=== PATIENT | male | born 1975 | race Two or more races ===

== ENCOUNTER 2024-11-10 22:57 | Emergency (ER) | payer MEDICAID, SELFPAY ==
--- NOTE | 2024-11-10 22:58 | EKG_ITS ---
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
[2024-11-10 23:08] VITALS: BP 134/89; PULSE 88; RESP 18; TEMP 37.2; O2SAT 99; BMI 33.9
--- NOTE | 2024-11-10 23:16 | PD.EDADULT ---
ED General RME/HPI General Chief complaint: Chest Pain Stated complaint: CHEST PAIN Time Seen by Provider: 11/10/24 22:57 Arrival date/time: 11/10/24 22:57 RME / HPI RME / HPI narrative: Patient is 49 years old male is no significant past medical history presented to the ED complaining of left-sided chest pain. He reports pain started approximately 1 week ago and was worsening, today pain was unbearable and he came to the emergency room. He reports night sweats and chills periodically. He reports deep breathing causing worsening of pain. Pain does not respond to physical activity or rest. He denies fever, shortness of breath, abdominal pain, nausea, vomiting, diarrhea. He denies smoking tobacco, using illicit drugs or drink alcohol. Related Data Allergies Allergy/AdvReac Type Severity Reaction Status Date / Time No Known Allergies Allergy Verified 11/10/24 22:57 Review of Systems Review of Systems Systems Reviewed: All systems reviewed, normal except as documented ED Exam Narrative Physical exam: Gen: Well-developed and well-nourished male. HEENT: NCAT, PERRLA, EOMI, MMM, anicteric conjunctivae. CVS: normal S1 and S2. RRR. No M/R/G. Resp: CTA B/L. No rhonchi, rales, crackles or wheezing. Abd: soft, obese, tender in LUQ, non-distended. BS+ in all 4 quadrants. MSK: Good ROM in BUE & BLE. No edema or rash. Neuro: CN II-XII grossly intact. Strength 5/5 in BUE & BLE. Alert and oriented x3. Psych: appropriate mood and affect. Course Quality Measures none Orders Category Date Time Status Bedside COVID-19 Antigen Test NOW Care 11/10/24 23:25 Active Bedside Influenza A&B Antigen Test NOW Care 11/10/24 23:[address] Screening X1 Care 11/10/24 23:51 Active EKG (ED ONLY) *Do not use* NOW Care 11/10/24 22:58 Completed Saline [Insert IV] NOW Care 11/10/24 23:38 Active Straight [In and Out Catheter] X1 Care 11/10/24 23:[address] angio chest abdomen pelvis Stat Exams 11/10/24 23:38 Taken CXRP [XR chest 1V portable] Stat Exams 11/10/24 23:23 Completed EKG (ED Only) Stat Exams 11/10/24 22:58 Draft XR shoulder LT min 2V Stat Exams 11/10/24 23:38 Taken Amylase Stat Lab 11/10/24 23:56 Completed BNP [B-Type Natriuretic Peptide] Stat Lab 11/10/24 23:56 Completed CBC Stat Lab 11/10/24 23:56 Completed CMP [Comprehensive Metabolic Panel] Stat Lab 11/10/24 23:56 Completed D-Dimer Stat Lab 11/10/24 23:56 Completed Lipase Stat Lab 11/10/24 23:56 Completed Magnesium Stat Lab 11/10/24 23:56 Completed Triglycerides Stat Lab 11/10/24 23:56 Completed Troponin I Stat Lab 11/10/24 23:56 Completed Urinalysis Stat Lab 11/11/24 01:28 Completed HYDROmorphone INJ [Dilaudid Inj] Med 11/10/24 23:39 Discontinued 1 mg IVP X1 ONE Ketorolac Inj [Toradol Inj] Med 11/10/24 23:39 Discontinued 30 mg IVP X1 ONE Ondansetron Inj [Zofran Inj] Med 11/10/24 23:39 Discontinued 4 mg IV X1 ONE Sodium Chloride 0.9% 1000 ml [Ns] 1,000 ml Med 11/10/24 23:39 Discontinued IV 999 mls/hr Vital Signs Vital signs: Vital Signs Temperature 98.9 F 11/10/24 23:08 Pulse Rate 88 11/10/24 23:08 Respiratory Rate 18 11/10/24 23:08 Blood Pressure 134/89 H 11/10/24 23:08 Pulse Oximetry (%) 99 11/10/24 23:08 Oxygen Delivery Method Room Air 11/10/24 23:08 Procedures -ED EKG Interpretation #1: Date of EK11/10/24 Time of EK:04 Rate: 88 Interpretation: Reviewed by me EKG Impression: Normal sinus rhythm MDM Patient data [place] [facility] [place] Clinical information provided by:: patient and family Social determinants that could affect healthcare access:: none Patient has the following chronic illnesses:: none How is presenting disease/condition affected by chronic disease/condition?: no chronic disease Evaluation data The following diagnostics were reviewed and interpreted by me:: lab results, radiology exam(s) and EKG tracing(s) Lab and/or radiology exams considered but not ordered:: CTAP Interpretation Summary: WNL Medications Medications considered but not ordered:: Aspirin, statin Medication administrations:: Medication Administration History Discontinued Medications Hydromorphone HCl (Hydromorphone Inj 2 Mg/Ml Vial) 1 mg IVP X1 ONE Stop: 11/10/24 23:40 Last Admin: 11/11/24 00:02 Dose: 1 mg Documented By: RACQUEL Sodium Chloride (Ns) 1,000 mls @ 999 mls/hr IV .Q1H1M ONE Stop: 11/11/24 00:39 Last Infusion: 11/11/24 01:30 Dose: Infused Documented By: Admin: 11/10/24 23:54 Dose: 999 mls/hr Documented By: RACQUEL Ketorolac Tromethamine (Ketorolac Inj 30 Mg/Ml Vial) 30 mg IVP X1 ONE Stop: 11/10/24 23:40 Last Admin: 11/11/24 00:02 Dose: 30 mg Documented By: RACQUEL Ondansetron HCl (Ondansetron Inj 2 Mg/Ml Inj 2 Ml) 4 mg IV X1 ONE; Protocol Stop: 11/10/24 23:40 Last Admin: 11/11/24 00:02 Dose: 4 mg Documented By: RACQUEL Hydromorphone 1 mg, ketorolac 30 mg, ondansetron 4 mg, NS 1L. Consultations Consultation(s) initiated? (list below): No Diagnosis Differential Diagnosis ED Complaint MDM: ACS, costochondritis, PE, pneumothorax, pericarditis Most likely diagnosis given after review of the tests above:: Costochondritis Admission Indicated Admission indicated?: not indicated Explain why admission is indicated or not indicated:: Costochondritis, no need for admission, follow up outpatient. Admission Request Was there a request for admission?: No Disposition Plan Disposition Plan: Discharge Discharge Attestation Discharge Attestation: The patient and all family members were given an opportunity to ask questions and understood the discharge instructions. Discharge instructions specifically effects, indications for sooner follow up or return to the emergency department, and the expected course of current diagnosis. Patient condition: Stable Medical Decision Making Differential Diagnosis Differential Diagnosis: ACS, costochondritis, PE, pneumothorax, pericarditis Lab Data 11/10/24 23:56 11/10/24 23:56 Labs: Lab Results 11/10/24 11/11/24 Range/Units 23:56 01:28 WBC 10.2 (3.8-10.6) Thou/mm3 RBC 5.14 (4.50-5.90) Miln/mm3 Hgb 13.7 (13.5-16.0) g/dL Hct 40.0 L (41.0-53.0) % MCV 78 L (80-100) fL MCH 26.7 (25.0-35.0) pg MCHC 34.3 (31.0-37.0) g/dl RDW Std Deviation 38.8 (35.1-43.9) fL Plt Count 265 (140-440) Thou/mm3 Neut % (Auto) 56 (37-80) % Lymph % (Auto) 32 (10-50) % [place] % (Auto) 8 (0-12) % Eos % (Auto) 3 (0-10) % Baso % (Auto) 1 (0-2.5) % Neut # (Auto) 5.7 (1.8-7.7) Thou/mm3 Lymph # (Auto) 3.3 (1.0-4.8) Thou/mm3 [place] # (Auto) 0.8 (0.0-0.8) Thou/mm3 Eos # (Auto) 0.3 (0.0-0.5) Thou/mm3 Baso # (Auto) 0.1 (0.0-0.2) Thou/mm3 Immature Gran # (Auto) 0.05 H (0.00-0.00) Thou/mm3 Absolute Nucleated RBC 0.00 (0.00-0.00) Thou/mm3 Immature Gran % 1 H (0-0) % Nucleated RBC % 0 (0) /100 WBC D-Dimer 282 (<600) ng/mL Sodium 140 (136-145) mMol/L Potassium 3.5 (3.4-5.1) mMol/L Chloride 105 (98-107) mMol/L Carbon Dioxide 26.4 (20.0-31.0) mMol/L Anion Gap 9 (7-16) BUN 17 (9-23) mg/dL Creatinine 0.7 (0.6-1.3) mg/dL Estim Creat Clear Calc 147.2 (>60) mL/min eGFR > 60 (60 - ) See Note BUN/Creatinine Ratio 24 H (12-20) Ratio Glucose 120 H (74-106) mg/dL Calculated Osmolality 281 (275-295) Calcium 9.5 (8.3-10.6) mg/dL Corrected Calcium 9.5 (8.5-10.1) mg/dL Magnesium 2.2 (1.6-2.6) mg/dL Total Bilirubin 0.6 (0.3-1.2) mg/dL AST 23 (0-34) U/L ALT 32 (10-49) U/L Alkaline Phosphatase 72 (46-116) U/L Troponin I < 0.002 (0.0-0.045) ng/mL B-Natriuretic Peptide < 20 (0-100) pg/mL Total Protein 7.3 (5.7-8.2) gm/dL Albumin 4.7 (3.5-5.0) gm/dL Globulin 2.6 (2.3-3.5) gm/dL Albumin/Globulin Ratio 1.8 (1.2-2.2) Triglycerides 168 H (30-150) mg/dL Amylase 71 (30-118) U/L Lipase 40 (12-53) U/L Ur Collection Type Clean Catch Urine Color Lt-Yellow (Lt Yel-Yel) Urine Clarity Clear (Clear/Hazy) Urine pH 7.0 (5.0-7.0) Ur Specific [place] 1.031 (1.001-1.035) Urine Protein Trace (Neg - Trace) Urine Glucose (UA) Negative (Negative) Urine Ketones Negative (Negative) Urine Blood Negative (Negative) Urine Nitrite Negative (Negative) Urine Bilirubin Negative (Negative) Urine Urobilinogen (Auto) Negative (0.0-1.0) mg/dL Ur Leukocyte Esterase Negative (Negative) Urine RBC 3 (0-3) /hpf Urine WBC < 1 (0-5) /hpf Ur Squamous Epith Cells < 1 (0-5) /hpf Urine Bacteria None (None) Discharge Plan Plan Patient Disposition: HOME (Self Care) Patient condition on transfer: Stable Prescriptions/Referrals Referrals: No Primary/Family,Physician [Primary Care Provider] - In 1 week Problem List Clinical Impression: Costalchondritis Patient/Caregiver Discharge Instructions Education Materials: ED Chest Wall Pain, Costochondritis Additional Instructions: Discharge instructions from Dr. Espinoza: 1. After extensive evaluation, there is no life-threatening condition.? Such as heart attack or pulmonary embolism (blood clots in your lungs) or pneumothorax (collapsed lung). 2. Your pain is originating from the chest wall and not from an internal organ.? The chest wall has many joints and muscles between the ribs, so sprains and strains are common.?? 3. Apply ice or heat if helpful.? Tylenol/ibuprofen as needed. 4. See a private doctor on 11/12/2024 for recheck and for second opinion. To make sure there is no serious underlying heart condition, ask to help you get more tests for your heart that cannot be done here in the ER.? Such as Holter Monitor (cardiac monitoring at home from a day to even a month), heart stress test (on treadmill or with medication), echocardiogram (imaging of your heart structures), heart catherization (checking for blockages in your heart arteries), and a referral to see a Telex Operator.? 5. Seek immediate medical care with worsening or with any concerns.?? Instrucciones de lucien del Dr. Espinoza: 1. Despu?s de yamile evaluaci?n exhaustiva, no hay ninguna afecci?n que ponga en peligro la hannah, bianca un ataque card?aco o yamile embolia pulmonar (co?gulos de taryn en los pulmones) o un neumot?rax (colapso pulmonar). 2. El dolor se origina en la pared tor?cica y no en un ?rgano interno. La pared tor?cica tiene muchas articulaciones y m?sculos entre las costillas, por lo que los esguinces y las distensiones son comunes. 3. Aplique hielo o calor si es ?til. Tylenol/ibuprofeno seg?n sea necesario. 4. Visite a un m?dico privado el 06/07/2025 para que lo revisen nuevamente y para obtener yamile segunda opini?n. Para asegurarse de que no haya yamile afecci?n card?vitaliy subyacente grave, pida ayuda para realizar m?s pruebas para burnette coraz?n que no se pueden realizar aqu? en la yessenia de emergencias. Bianca por ejemplo, un monitor Holter (monitoreo card?aco en el hogar que dura desde un d?a hasta un mes), yamile prueba de esfuerzo card?aco (en cinta o con medicaci?n), un ecocardiograma (im?genes de las estructuras del coraz?n), un cateterismo card?aco (para comprobar si hay obstrucciones en las arterias del coraz?n) y yamile derivaci?n para pushpa a un cardi?logo. 5. Busque atenci?n m?dica inmediata si burnette estado empeora o tiene alguna inquietud. Print Language: Urdu Stand Alone Forms: Latanya Award Info., Patient Portal Info Letter
--- NOTE | 2024-11-10 23:23 | XR_ITS ---
Examination: AP chest single view Technique one AP portable upright chest single view Exam date and time: November 10, 2024 11:40 PM Comparison December 20, 2020 Indications: Chest pain coughing today Findings: Normal heart size. The lungs are clear. The osseous structures are intact Impression: No active disease
--- NOTE | 2024-11-10 23:38 | XR_ITS ---
Examination: Left shoulder 2 views Technique: AP internal rotation Y-view left shoulder 2 views Exam date and time: November 11, 2024 at 12:54 AM Indications: Injury to the shoulder today, shoulder pain. Findings: No acute fracture No shoulder dislocation No foreign body Impression: No acute fracture
--- NOTE | 2024-11-10 23:38 | XR_ITS ---
Examination: CTA chest, with intravenous contrast. CTA abdomen, with intravenous contrast. CTA pelvis, with intravenous contrast. 2-D sagittal and coronal reconstructions. 3-D reconstructions. Date and time of exam: November 21, 2024 0030 hrs. Indications: Severe chest and left-sided abdominal pain today CTDI vol (mgy) 16.1 DLP (MGycm) 956 Technique: Multiple CTA images, 2.0 mm slice thickness, obtained chest, abdomen, pelvis, with the high-resolution 64 slice scanner. 100 cc Isovue-370 is administered intravenously. Sagittal and coronal 2-D reconstructions are obtained. 3-D reconstructions, angiographic images are obtained. 3-D postprocessing, including vascular maximum intensity projections. Low dose protocols were performed. One or more of the following dose reduction techniques were used; automated exposure control, adjustment of the mA and/or KV according to patient size, use of iterative reconstruction technique. Findings: No thoracic aortic aneurysmal dilatation or dissection No pulmonary artery filling defects No paratracheal tracheobronchial or bronchopulmonary adenopathy. No pneumonia or pulmonary edema or pleural disease Fatty infiltration throughout the liver No gallstones No pancreatic mass No renal or ureteral calculi Aorta in the abdomen normal size Normal appendix Minimal small bowel ileus No bowel obstruction Urinary bladder intact No significant prostatomegaly The osseous structures are intact Impression: No thoracic or aortic aneurysm dilatation Negative for pulmonary artery emboli No pneumonia or pulmonary edema No acute process in the abdomen
[2024-11-10] MEDS: SODIUM CHLORIDE 0.9% 1000 ML 1,000 ML 999 ML IV (23:54)
[2024-11-11] MEDS: ONDANSETRON INJ 2 MG/ML INJ 2 ML 4 MG IV (00:02)
[2024-11-11] MEDS: HYDROmorphone INJ 2 MG/ML VIAL 1 MG IVP (00:02)
[2024-11-11] MEDS: KETOROLAC INJ 30 MG/ML VIAL IVP (00:02)
[2024-11-11 00:03] VITALS: BP 147/95; PULSE 92; RESP 20; O2SAT 100
[2024-11-11 00:12] LABS: Basophils # (Auto) 0.1 Thou/mm3 (0.0-0.2); Basophils % (Auto) 1 % (0-2.5); Eosinophils # (Auto) 0.3 Thou/mm3 (0.0-0.5); Eosinophils % (Auto) 3 % (0-10); Hemoglobin 13.7 g/dL (13.5-16.0); Immature Granulocytes % (Auto) 1 % (0-0); Immature Granulocytes Auto 0.05 Thou/mm3 (0.00-0.00); Lymphocytes # (Auto) 3.3 Thou/mm3 (1.0-4.8); Lymphocytes % (Auto) 32 % (10-50); Mean Corpuscular HGB Conc 34.3 g/dl (31.0-37.0); Mean Corpuscular Hemoglobin 26.7 pg (25.0-35.0); Mean Corpuscular Volume 78 fL (80-100); Monocytes # (Auto) 0.8 Thou/mm3 (0.0-0.8); Monocytes % (Auto) 8 % (0-12); Neutrophils # (Auto) 5.7 Thou/mm3 (1.8-7.7); Neutrophils % (Auto) 56 % (37-80); Nucleated Red Blood Cell % 0 /100 WBC (0); Platelet Count 265 Thou/mm3 (140-440); RDW Standard Deviation 38.8 fL (35.1-43.9); Red Blood Count 5.14 Miln/mm3 (4.50-5.90); White Blood Count 10.2 Thou/mm3 (3.8-10.6)
[2024-11-11 00:23] LABS: B-Type Natriuretic Peptide < 20 pg/mL (0-100)
[2024-11-11 00:24] LABS: Alanine Aminotransferase 32 U/L (10-49); Albumin, Serum 4.7 gm/dL (3.5-5.0); Albumin/Globulin Ratio 1.8 (1.2-2.2); Alkaline Phosphatase 72 U/L (46-116); Amylase 71 U/L (30-118); Anion Gap 9 (7-16); Aspartate Amino Transferase 23 U/L (0-34); BUN/Creatinine Ratio 24 Ratio (12-20); Bilirubin,Total 0.6 mg/dL (0.3-1.2); Blood Urea Nitrogen 17 mg/dL (9-23); Calcium 9.5 mg/dL (8.3-10.6); Calcium (Corrected) 9.5 mg/dL (8.5-10.1); Carbon Dioxide 26.4 mMol/L (20.0-31.0); Chloride 105 mMol/L (98-107); Creatinine (Component) 0.7 mg/dL (0.6-1.3); Estimated Creatinine Clearance 147.2 mL/min (>60); Globulin 2.6 gm/dL (2.3-3.5); Glucose 120 mg/dL (74-106); Lipase 40 U/L (12-53); Magnesium 2.2 mg/dL (1.6-2.6); Osmolality,Calculated 281 (275-295); Potassium 3.5 mMol/L (3.4-5.1); Sodium 140 mMol/L (136-145); Total Protein 7.3 gm/dL (5.7-8.2); Triglycerides 168 mg/dL (30-150); Troponin I < 0.002 ng/mL (0.0-0.045); eGFR > 60 See Note
[2024-11-11 00:28] LABS: D-Dimer 282 ng/mL (<600)
[2024-11-11 01:31] VITALS: BP 116/50; PULSE 77; RESP 18; TEMP 37; O2SAT 98
[2024-11-11 01:45] LABS: Collection Type, Urine Clean Catch
[2024-11-11 01:49] LABS: Bilirubin,Urine Negative (Negative); Blood,Urine Negative (Negative); Clarity,Urine Clear (Clear/Hazy); Color,Urine Lt-Yellow (Lt Yel-Yel); Glucose, Urine Negative (Negative); Ketones,Urine Negative (Negative); Leukocyte Esterase,Urine Negative (Negative); Nitrite,Urine Negative (Negative); Protein,Urine Trace (Neg - Trace); RBC,Urine 3 /hpf (0-3); Specific Gravity,Urine 1.031 (1.001-1.035); Squamous Epithelial Cell,Urine < 1 /hpf (0-5); Urobilinogen,Urine Negative mg/dL (0.0-1.0); WBC,Urine < 1 /hpf (0-5)
--- NOTE | 2024-11-11 03:01 | PRELIM_ITS ---
CT angiogram of the chest, abdomen and pelvis with intravenous contrast (axial sections with sagittal and coronal reformats). November 11, 2024 at 0033 hours Clinical History: Severe left chest/abdominal pain. Comparison: No prior study is available for comparison. Findings: Chest: Heart is normal in size. There is no pericardial or pleural effusion. There is no thoracic aortic aneurysm or dissection. There is no filling defect within the pulmonary arterial circulation. Thyroid is unremarkable. There is no thoracic lymphadenopathy. There is minimal subsegmental atelectasis in the lingula otherwise lungs are clear. There is no pneumothorax. There is degenerative change in the spine. Abdomen/pelvis: There is no aneurysm or dissection of the abdominal aorta or branch vessels. The celiac artery, superior mesenteric artery, bilateral renal arteries, inferior mesenteric artery and iliac arteries are intact. There are mild vascular calcifications along the abdominal aorta and iliac arteries. There is mild fatty infiltration of the liver. The gallbladder, spleen, pancreas, adrenals and kidneys are unremarkable. The urinary bladder is of normal partially filled configuration. There is underdistention of the stomach which limits evaluation. There are colonic diverticula without evidence of diverticulitis. There is no bowel obstruction. Appendix is normal. There is no free intraperitoneal air or fluid. Small fat-containing left inguinal hernia noted. There is degenerative change in the spine with multilevel foraminal and spinal canal stenosis. There is degenerative change at the SI joints and hips. There is no acute osseous abnormality. Impression: 1. No thoracic aortic aneurysm or dissection. No pulmonary arterial embolism. No pericardial or pleural effusion. No pneumothorax. 2. No aneurysm or dissection of the abdominal aorta. Report Electronically Signed By: Delonte Lozoya 11/11/2024 3:00:05 AM [EST]
[2024-11-11 04:11] VITALS: BP 136/75; PULSE 70; RESP 16; TEMP 36.7; O2SAT 95
== END 2024-11-11 04:17 | disposition home or self-care (01) ==
PROVIDERS: Emergency Medicine; Emergency Provider Student in an Organized Health Care Education/Training Program
DX: M94.0 Chondrocostal junction syndrome [Tietze] (principal)
CPT/HCPCS: 36415; 71045; 71275; 73030; 74174; 80053; 81001; 82150; 83690; 83735; 83880; 84478; 84484; 85025; 85379; 87400; 87811; 93005; 96361; 96374; 96375; 99285; A4649; J1885; J2405; J3490; J7030; Q9967